=== PATIENT | female | born 1965 | race African-American/Black ===

== ENCOUNTER 2019-03-22 19:40 | Emergency (ER) | payer OTHER ==
[~2019-03-22] VITALS: Ht 175.3 cm; Wt 86.6 kg
[2019-03-22 22:28] LABS: BASOPHILS # (AUTO) 0.1 /CMM (0.0-0.2); BASOPHILS % (AUTO) 1.3 % (0.0-2.0); EOSINOPHILS % (AUTO) 1.7 % (0.0-6.0); HEMATOCRIT 26 % (33-45); LYMPHOCYTES # (AUTO) 4.1 /CMM (0.8-4.8); LYMPHOCYTES % (AUTO) 35.1 % (20.0-44.0); MEAN CORPUSCULAR HGB CONC 27 g/dl (31.0-36.0); MEAN CORPUSCULAR VOLUME 53 fL (82-100); MONOCYTES # (AUTO) 0.6 /CMM (0.1-1.30); MONOCYTES % (AUTO) 4.9 % (2.0-12.0); NEUTROPHILS # (AUTO) 6.7 /CMM (1.8-8.9); PLATELET COUNT (AUTO) 148 /CMM (150-450); RED BLOOD CELL COUNT(AUTO) 4.87 MIL/uL (4.0-5.2); WHITE BLOOD COUNT (AUTO) 11.7 K/uL (4.3-11.0)
[2019-03-22 22:30] LABS: HEMOGLOBIN 6.9 g/dL (11.5-14.8)
[2019-03-22 22:37] LABS: CALCIUM, SERUM 9.5 mg/dL (8.5-10.1); CREATININE 0.7 mg/dL (0.6-1.3); POTASSIUM 3.8 mmol/L (3.5-5.1)
[2019-03-22 23:16] LABS: LYMPHOCYTES % (MANUAL) 12 % (16-48); MONOCYTES % (MANUAL) 1 % (0-11.0); NEUTROPHILS % (MANUAL) 87 (42-76)
[2019-03-23 03:51] VITALS: BP 131/76
== END 2019-03-23 03:51 | disposition home or self-care (01) ==
LOC: ER 19:48
DX: D64.9 Anemia, unspecified (principal)
CPT/HCPCS: 36415; 36430; 80048; 84484; 85025; 85730; 86850; 86921; 93005; 99285; J7050; P9016